=== PATIENT | male | born 1945 | race Caucasian/White ===

== ENCOUNTER 2021-12-26 09:13 | Inpatient (IN) | payer OTHER, MEDICARE ==
[~2021-12-26] VITALS: Ht 172.7 cm; Wt 69.0 kg
[~2021-12-26 09:13] MED LIST: ASPI325 PO; CRESTOR; METO50 PO; NITR.4SL SL; OMEP20ER PO; ROSU5 PO
[2021-12-26 09:33] LABS: Hematocrit 41.4 % (37.0-53.0); Hemoglobin 13.7 g/dL (13.5-17.5); Mean Corpuscular HGB Conc 33.1 g/dL (31.5-36.5); Mean Corpuscular Volume 91 fL (80-100); Mean Platelet Volume 9.5 fL (9.1-12.4); Platelet Count 258 K/mm3 (150-400); RDW Coefficient Variation 12.2 % (11.7-14.2); RDW Standard Deviation 40.6 fL (35.1-46.3); Red Blood Cell Count 4.56 M/mm3 (4.30-5.90); White Blood Cell Count 14.52 K/mm3 (4.00-11.30)
[2021-12-26 09:50] LABS: International Normalized Ratio 1.26
[2021-12-26] MEDS ORDERED: METO25ER PO (09:54)
[2021-12-26] MEDS ORDERED: LIPITOR80 MG PO (09:54)
[2021-12-26] MEDS ORDERED: LEVSOD25 PO (09:55)
[2021-12-26 11:52] LABS: Anion Gap 6 mmol/L (6-16); Blood Urea Nitrogen 21 mg/dL (8-24); Bun/Creatinine Ratio 19.6 (12.0-20.0); CHOL/HDL RATIO 3.6; CO2, Blood 25 mmol/L (21-32); CPK Creatine Kinase 88 U/L (39-308); Calcium, Blood 8.8 mg/dL (8.5-10.1); Chloride, Blood 109 mmol/L (98-108); Cholesterol 182 mg/dL (50-200); Creatinine, Blood 1.07 mg/dL (0.60-1.20); Glomerular Filtration Rate >60 (60-); Glucose, Blood 210 mg/dL (70-99); HDL Cholesterol 50 mg/dL (>39); LDL/HDL RATIO 2.1; Low Density Lipoprotein Chol 103 mg/dL (0-110); Magnesium, Blood 2.1 mg/dL (1.6-2.4); Potassium, Blood 4.3 mmol/L (3.5-5.5); Sodium, Blood 140 mmol/L (136-145); Triglycerides 147 mg/dL (30-160); Very Low Density Lipoprot Chol 29 mg/dL (6-32)
[2021-12-26 13:44] LABS: Creatine Kinase MB 154.9 ng/mL (0.0-3.6); Creatine Kinase MB Index 7.7 (0.0-4.0)
[2021-12-26 14:09] LABS: Alanine Aminotransfer (ALT/SGP 83 U/L (12-78); Albumin, Blood 3.3 g/dL (3.4-5.0); Albumin/Globulin Ratio 1.1 (0.8-1.8); Alk Phos 146 U/L (50-136); Anion Gap 6 mmol/L (6-16); Aspartate Aminotrans (AST/SGOT 324 U/L (12-37); Bilirubin, Total 0.6 mg/dL (0.1-1.0); Blood Urea Nitrogen 19 mg/dL (8-24); Bun/Creatinine Ratio 21.4 (12.0-20.0); CO2, Blood 23 mmol/L (21-32); Calcium, Blood 8.5 mg/dL (8.5-10.1); Chloride, Blood 110 mmol/L (98-108); Creatinine, Blood 0.89 mg/dL (0.60-1.20); Globulin, Blood 3.1 g/dL (2.2-4.0); Glomerular Filtration Rate >60 (60-); Glucose, Blood 161 mg/dL (70-99); Potassium, Blood 4.5 mmol/L (3.5-5.5); Sodium, Blood 139 mmol/L (136-145); Total Protein, Blood 6.4 g/dL (6.4-8.2)
--- NOTE | 2021-12-26 14:12 | NUR ---
AROUND 1335 THIS RN WAS CALLED INTO THE ROOM BY STREET LIGHT LAMP CLEANER AFTER PT STATED HE WAS FEELING DIZZY AND NASEUOUS. PT WAS DIAPHORETIC AND PALE. NOTICED HR WAS DROPPING. PIANO CASE AND BENCH ASSEMBLER CALLED AND CODE CARD BROUGHT INTO ROOM. LOST PULSE AND CPR WAS STARTED. MARY ELLEN FISCHER CALLED. AFTER 2 CHEST COMPRESSIONS, PT AWOKE. HR RETURNED TO LOW 100S AND PT REPORTED NO MORE SYMPTOMS. DR ASH AT BEDSIDE FOR CODE. ANNEALER NOTIFIED. SEE ORDERS.
--- NOTE | 2021-12-26 19:37 | NUR ---
1630 - PT CALLED ME TO THE ROOM. WHEN I ENTERED, PT APPEARED TO BE SEIZING. SENIOR MECHANICAL DESIGNER CALLED TO ROOM. PT HAD FIXED UPWARD LEFT GAZE, APNIC. 2MG ATIVAN WAS GIVEN. ATTEMPTED TO BAG PT BUT UNABLE TO OPEN AIRWAY. BP DECREASED. AND HR HAD DECREASED TO 50S. PT WAS DIAPHORETIC. PT QUICKLY RECOVERED AND WAS ABLE TO RESPOND APPROPRIATELY TO ORIENTATION QUESTIONS, THOUGH SLEEPY. HR AND BP RECOVERED WITHOUT TREATMENT. DR HEARD NOTIFIED VIA PHONE, SEE ORDERS. 1830 - PT BEGAN REMOVING BIPAP. THIS RN ENTERED ROOM. PT WAS HYPOTENSIVE, DIAPHORETIC, VOMITTED, HR DECREASED TO 50S. AGAIN, HE QUICKLY RECOVERED. DR. MYRICK AT BEDSIDE, NOTIFIED OF EPISODE. SEE ORDERS. BLADDER SCANNED AROUND 1900, RESULT OF 120CC IN BLADDER. PT NOTICED TO HAVE INCONTINENT EPISODE AT THIS TIME.
--- NOTE | 2021-12-26 20:00 | NUR ---
ASSUMED CARE OF PT AT 1915. REPORT RECEIVED AT BEDSIDE. PT HAS ZOLL AND PATCHES TO CHEST. PT ON AGGRASTAT DRIP AND WILL BE FOR 18 HOURS. PT CURRENTLY HAS NO COMPLAINTS OF CHEST PAIN OR DYSPNEA. NO CHEST PRESSURE. WILL REVIEW CHART AND PLAN OF CARE FOR THIS PT.
[2021-12-26 21:16] LABS: Creatine Kinase MB 207.3 ng/mL (0.0-3.6); Creatine Kinase MB Index 9.8 (0.0-4.0)
[2021-12-27 03:16] LABS: BASOPHILS ABSOLUTE AUTO 0.03 K/mm3 (0.00-0.23); BASOPHILS PERCENT AUTO 0 % (0-2); EOSINOPHILS PERCENT AUTO 0 % (0-6); Hematocrit 30.2 % (37.0-53.0); Hemoglobin 9.8 g/dL (13.5-17.5); IMMATURE GRAN ABSOLUTE AUTO 0.06 K/mm3 (0.00-0.10); IMMATURE GRAN PERCENT AUTO 0 % (0-1); LYMPHOCYTES ABSOLUTE AUTO 1.13 K/mm3 (0.84-5.20); LYMPHOCYTES PERCENT AUTO 7 % (21-46); MONOCYTES ABSOLUTE AUTO 1.27 K/mm3 (0.16-1.47); MONOCYTES PERCENT AUTO 8 % (4-13); Mean Corpuscular HGB 29.8 pg (26.0-34.0); Mean Corpuscular HGB Conc 32.5 g/dL (31.5-36.5); Mean Corpuscular Volume 92 fL (80-100); Mean Platelet Volume 10.1 fL (9.1-12.4); NEUTROPHILS ABSOLUTE AUTO 14.44 K/mm3 (1.96-9.15); NEUTROPHILS PERCENT AUTO 85 % (41-73); Platelet Count 205 K/mm3 (150-400); RDW Coefficient Variation 12.5 % (11.7-14.2); Red Blood Cell Count 3.29 M/mm3 (4.30-5.90); White Blood Cell Count 16.93 K/mm3 (4.00-11.30)
[2021-12-27 04:21] LABS: Creatine Kinase MB 128.2 ng/mL (0.0-3.6); Creatine Kinase MB Index 8.3 (0.0-4.0)
--- NOTE | 2021-12-27 07:01 | NUR ---
PT HAS HAD SOME RESIDUAL CHEST PAIN ON RIGHT SIDE OF CHEST. PT STATES THAT IT IS WHERE "THEY POPPED ME." ALLUDING TO WHEN COMPRESSIONS HAD BEEN DONE. PT CURRENTLY OF AGGRASTAT DRIP. HAS HAD ONE EPISODE OF SINUS PAUSE THIS MORNING. PT WAS UNAWARE THAT THIS OCCURRED. HAS BEEN UP TO BEDSIDE COMMODE AND HAS HAD LARGE BM. NO VAGAL/BRADYCARDIA DURING THIS. DID DO ORTHOSTATIC BLOOD PRESSURES. SEE VS FLOWSHEET FOR DETAILS. TRANSFER DONE WITH ONE PERSON ASSIST. PT HAS REMAINED ON ROOM AIR THROUGHOUT THE NIGHT. NO COMPLAINTS OF SHORTNESS OF BREATH. WILL CONTINUE TO MONITOR PT, AND WILL REPORT OFF TO ONCOMING RN.
[2021-12-27 09:28] LABS: Hematocrit 29.2 % (37.0-53.0); Hemoglobin 9.6 g/dL (13.5-17.5)
--- NOTE | 2021-12-27 09:52 | NUR ---
Pt. is awake, alert and in bed. Pt. welcomes my visit. Pt. is pleasant and displays evidence of gratitude for the care he has received. Pt. is unsettled by his personal lack of taking intitiative when he experienced early symtoms. Listen empathetically. Provide alming influence. Pt. displays evidence of encouragement. Pt. verbalizes gratitude for the spiritual care visit. Pt. welcomes a return visit.
--- NOTE | 2021-12-27 11:46 | NUR ---
[place] of Care:
--- NOTE | 2021-12-27 18:05 | NUR ---
NO ACUTE EVENTS THIS SHIFT. PT IS A&OX4. CALM AND COOPERATIVE. SPENT MOST OF THE DAY IN THE CHAIR. ROOM AIR. SR 80S-90S AND SINUS TACH TO 120 WITH ACTIVITY. COMPLAINS OF MUSCULOSKELETAL PAIN IN RIGHT CHEST AREA FROM CODE. IMPROVED WITH TYLENOL. VOIDED CLEAR YELLOW URINE IN URINAL.
--- NOTE | 2021-12-27 19:10 | NUR ---
ASSUMPTION OF CARE PT RESTING IN BED WITH EYES CLOSED, WAKENS EASILY TO SOUND. HE IS CURRENTLY RECEIVING NS 100ML/HR AND WILL BE SALINE LOCKED ONCE BAG IS COMPLETE. PT ON RA, DENIES NEEDS AT THIS TIME. URINAL AND CALL LIGHT WITHIN REACH. VSS.
[2021-12-28 03:35] LABS: BASOPHILS ABSOLUTE AUTO 0.03 K/mm3 (0.00-0.23); BASOPHILS PERCENT AUTO 0 % (0-2); EOSINOPHILS PERCENT AUTO 1 % (0-6); Hematocrit 27.9 % (37.0-53.0); Hemoglobin 9.3 g/dL (13.5-17.5); IMMATURE GRAN ABSOLUTE AUTO 0.07 K/mm3 (0.00-0.10); IMMATURE GRAN PERCENT AUTO 1 % (0-1); LYMPHOCYTES ABSOLUTE AUTO 1.03 K/mm3 (0.84-5.20); LYMPHOCYTES PERCENT AUTO 8 % (21-46); MONOCYTES ABSOLUTE AUTO 1.09 K/mm3 (0.16-1.47); MONOCYTES PERCENT AUTO 9 % (4-13); Mean Corpuscular HGB 30.4 pg (26.0-34.0); Mean Corpuscular HGB Conc 33.3 g/dL (31.5-36.5); Mean Corpuscular Volume 91 fL (80-100); Mean Platelet Volume 10.4 fL (9.1-12.4); NEUTROPHILS ABSOLUTE AUTO 10.02 K/mm3 (1.96-9.15); NEUTROPHILS PERCENT AUTO 81 % (41-73); Platelet Count 166 K/mm3 (150-400); RDW Coefficient Variation 12.9 % (11.7-14.2); RDW Standard Deviation 42.3 fL (35.1-46.3); Red Blood Cell Count 3.06 M/mm3 (4.30-5.90); White Blood Cell Count 12.34 K/mm3 (4.00-11.30)
[2021-12-28 03:54] LABS: Alanine Aminotransfer (ALT/SGP 54 U/L (12-78); Albumin, Blood 2.9 g/dL (3.4-5.0); Alk Phos 103 U/L (50-136); Anion Gap 7 mmol/L (6-16); Aspartate Aminotrans (AST/SGOT 127 U/L (12-37); Bilirubin, Total 0.9 mg/dL (0.1-1.0); Blood Urea Nitrogen 18 mg/dL (8-24); Bun/Creatinine Ratio 19.7 (12.0-20.0); CO2, Blood 21 mmol/L (21-32); Calcium, Blood 8.3 mg/dL (8.5-10.1); Chloride, Blood 111 mmol/L (98-108); Creatinine, Blood 0.91 mg/dL (0.60-1.20); Glomerular Filtration Rate >60 (60-); Glucose, Blood 185 mg/dL (70-99); Potassium, Blood 4.1 mmol/L (3.5-5.5); Sodium, Blood 139 mmol/L (136-145); Total Protein, Blood 5.9 g/dL (6.4-8.2)
--- NOTE | 2021-12-28 06:11 | NUR ---
SHIFT SUMMARY PT SLEPT THROUGH MOST OF NIGHT. HE WAKENS EASILY TO SOUND AND VERBAL STIMULI. HE REMAINS ALERT AND ORIENTED. NO ACUTE EVENTS THIS SHIFT. HE CONTINUES TO HAVE MUSCULOSKELETAL CHEST PAIN BUT DENIES SOB OR CP. HE HAS USED THE URINAL INDEPENDENTLY SEVERAL TIMES THROUGHOUT THE NIGHT. SALINE LOCKED SINCE EARLY IN SHIFT. DRINKING PLENTY OF PO FLUIDS. ATE SNACK AROUND 0200. VSS. WILL REPORT TO ONCOMING RN.
--- NOTE | 2021-12-28 12:00 | NUR ---
REASSESMENT PT UP IN CHAIR, REPORTS HE IS COMFORTABLE. DENIES ANY CHEST PAIN. MONITOR SHOWS PT TO BE IN SINUS TACH WITH RATE IN LOW 110'S. EARLIER THIS MORNING AFTER PT WOKE UP, HR INCREASED TO 120'S-130'S. DURING THAT TIME PT DENIED ANY DISCOMFORT/CHEST PAIN AND VITALS WERE STABLE. ASSESSMENT REMAINS UNCHANGED EXCEPT WERE NOTED. CALL LIGHT IN REACH OF PT.
--- NOTE | 2021-12-28 12:28 | NUR ---
DISCUSSED PT'S STATUS WITH DR FLANAGAN. PLAN IS TO CONTINUE TO OBSERVE PT IN ICU AT THIS TIME.
--- NOTE | 2021-12-28 16:30 | NUR ---
REASSESMENT PT SAT UP IN CHAIR MOST OF DAY. BACK IN BED NOW. CONTINUES TO DENY CHESTPAIN. HR HAS IMPROVED TO LOW 100'S THIS AFTERNOON. VITALS REMAIN STABLE. DR FLANAGAN TO BEDSIDE TO EVAL PT. PT DOWNGRADED TO PCU STATUS. NO ACUTE CHANGES TO PREVIOUS ASSESSMENT.
--- NOTE | 2021-12-28 17:24 | NUR ---
SHIFT SUMMARY PT IS ALERT AND ORIENTED x4. THIS MORNING PT HAD INCREASED HR WITH RATES 120'S-130'S. PT'S HR HAS IMPROVED THROUGH OUT THE DAY AND RATES OF HIGH 90'S-100'S NOW. PT HAS BEEN IN MOSTLY SINUS TACH WITH OCCASIONAL SINUS RHYTHM. PT HAS DENIED CHEST PAIN. PT WAS STATUS CHANGED THIS AFTERNOON TO PCU. DR FLANAGAN STATED THAT PT COULD POSSIBLY GO HOME TOMORROW. VITALS HAVE REMAIN STABLE. PT TOLERATED SITTING UP IN CHAIR A GOOD PORTION OF THE DAY.
--- NOTE | 2021-12-28 19:11 | NUR ---
ASSUMPTION OF CARE PT SLEEPING, WAKENS EASILY TO VERBAL STIMULI. HE REMAINS SALINE LOCKED AND ON RA. DENIES CP OR SOB AT THIS TIME. VSS. SEE SHIFT ASSESSMENT.
--- NOTE | 2021-12-28 22:32 | NUR ---
REPORT TO PCU REPORT GIVEN TO GLENROY. PT MOVED TO PCU AT THIS TIME BY DAIANA MURPHY. VSS.
[2021-12-29 04:03] LABS: Free Thyroxine 0.99 ng/dL (0.70-1.60); Thyroid Stimulating Hormone 2.63 uIU/mL (0.360-4.800)
--- NOTE | 2021-12-29 09:58 | NUR ---
CARE ASSUMPTION PATIENT IS ALERT AND OREINTED X4. PERRLA. NEURO IS INTACT. PATIENT REPORTS NO NUMBNESS OR TINGLING IN EXTREMITIES. VSS. TELE SR/ST 80-106. PATIENT REPORTS NO CHEST PAIN OR PRESSURE. STRONG RADIAL AND PEDIS PULSES. NO EDEMA NOTED. LUNG SOUNDS CLEAR. SEE SHIFT ASSESSMENT FOR FULL DETAILS. PATIENT REPORTS NO PAIN OR SHORTNESS OF BREATH. PATIENT USES CALL LIGHT APPROPRIATELY. CALL LIGHT IS WITHIN REACH AND BED IN LOWEST POSITION. WILL CONTINUE TO MONITOR AND PROVIDE CARE.
[2021-12-29] MEDS ORDERED: ASPI81CH PO (11:06)
[2021-12-29] MEDS ORDERED: TICA90TA PO (11:07)
[2021-12-29] MEDS ORDERED: CARV3.125 PO (11:07)
[2021-12-29] MEDS ORDERED: NITR.4SL SL (11:11)
--- NOTE | 2021-12-29 11:50 | NUR ---
DISCHARGE THIS RN WENT OVER ALL NEW MEDICATIONS, WHAT MEDICATIONS TO STOP, AND SITE CARE FOR HIS RADIAL SITE POST ANGIO. PATIENT VERABLIZED UNDERSTANDING AND HAS EDUCATIONAL PRINT OUTS. THIS RN INFORMED PATIENT OF FOLLOW UP APPOINTMENTS WITH PRIMARY CARE PROVIDER AND ANIMAL PATHOLOGY TEACHER TO MAKE Thursday, AND PROVIDED THE PAPERWORK THAT HAS THIS INFORMATION. PATIENT REMAINS UNCHANGE SINCE PREVIOUS NOTE. NEURO IS INTACT. NO ACUTE CHANGES. VSS. WILL CONTINUE TO MONITOR AND PROVIDE CARE UNTIL PATIENT RIDE ARRIVES. PATIENT HAS ALL BELONGINGS GATHERED.
--- NOTE | 2021-12-29 12:15 | NUR ---
DISCHARGED PATIENT LEFT PCU UNIT VIA AMBULATING WITH THIS RN. ALL PATIENT BELONGINGS WITH PATIENT.PATIENT IN NO DISTRESS WHEN LEAVING OR GETTING INTO THE TRUCK FOR HIS RIDE TO ROTARY FILTER OPERATOR HIS NEW PRESCRIPTIONS.
[2022-01-01] MEDS ORDERED: Acetaminophen650 M1 PO (16:03)
[2022-01-01] MEDS ORDERED: FERSU300 PO (16:04)
[2022-01-01] MEDS ORDERED: PANT40 PO (16:04)
== END 2021-12-29 12:03 | disposition home or self-care (01) | DRG 246 ==
LOC: ER 09:13 → ICUW 09:25 → ICUE 09:25 → PCU 12-28 22:49
PROVIDERS: Emergency Medicine; Internal Medicine; ADMIT Internal Medicine Interventional Cardiology
PROC: 027034Z Dilation of Coronary Artery, One Artery with Drug-eluting Intraluminal Device, Percutaneous Approach (ICD-10-PCS; principal; 2021-12-26)
PROC: 02C03ZZ Extirpation of Matter from Coronary Artery, One Artery, Percutaneous Approach (ICD-10-PCS; 2021-12-26)
PROC: 4A023N7 Measurement of Cardiac Sampling and Pressure, Left Heart, Percutaneous Approach (ICD-10-PCS; 2021-12-26)
PROC: 5A12012 Performance of Cardiac Output, Single, Manual (ICD-10-PCS; 2021-12-26)
DX: I21.09 ST elevation (STEMI) myocardial infarction involving other coronary artery of anterior wall (principal); I49.01 Ventricular fibrillation; I46.2 Cardiac arrest due to underlying cardiac condition; R55 Syncope and collapse; E78.5 Hyperlipidemia, unspecified; I10 Essential (primary) hypertension; E03.9 Hypothyroidism, unspecified; E78.00 Pure hypercholesterolemia, unspecified; I95.9 Hypotension, unspecified; I25.10 Atherosclerotic heart disease of native coronary artery without angina pectoris; Z88.8 Allergy status to other drugs, medicaments and biological substances
CPT/HCPCS: 36415; 71045; 76937; 80048; 80053; 80061; 82550; 82553; 82565; 82947; 83735; 83880; 84146; 84439; 84443; 84484; 85014; 85018; 85025; 85027; 85347; 85610; 85730; 86850; 86900; 86901; 92978; 93005; 93010; 93306; 93458; 99152; 99153; 99285-25; A9270; C1725; C1753; C1757; C1769; C1874; C1887; C1894; C9606; J0153; J1644; J2060; J2250; J2370; J3010; J3246; J3475; J7030; J7050; Q9967

== ENCOUNTER 2022-05-04 15:03 | Observation (INO) | payer OTHER ==
[~2022-05-04] VITALS: Ht 172.7 cm; Wt 66.7 kg
[~2022-05-04 15:03] MED LIST changes: +ASPI81CH PO; +Acetaminophen650 M1 PO; +CARV3.125 PO; +FERSU300 PO; +LEVSOD25 PO; +LIPITOR80 MG PO; +METO25ER PO; +PANT40 PO; +TICA90TA PO
[2022-05-04 15:23] LABS: BASOPHILS ABSOLUTE AUTO 0.11 K/mm3 (0.00-0.23); BASOPHILS PERCENT AUTO 1 % (0-2); EOSINOPHILS ABSOLUTE AUTO 0.26 K/mm3 (0.00-0.68); EOSINOPHILS PERCENT AUTO 2 % (0-6); Hematocrit 27.8 % (37.0-53.0); Hemoglobin 9.1 g/dL (13.5-17.5); IMMATURE GRAN ABSOLUTE AUTO 0.12 K/mm3 (0.00-0.10); IMMATURE GRAN PERCENT AUTO 1 % (0-1); LYMPHOCYTES ABSOLUTE AUTO 1.65 K/mm3 (0.84-5.20); LYMPHOCYTES PERCENT AUTO 11 % (21-46); MONOCYTES ABSOLUTE AUTO 1.17 K/mm3 (0.16-1.47); MONOCYTES PERCENT AUTO 8 % (4-13); Mean Corpuscular HGB 29.7 pg (26.0-34.0); Mean Corpuscular HGB Conc 32.7 g/dL (31.5-36.5); Mean Corpuscular Volume 91 fL (80-100); NEUTROPHILS ABSOLUTE AUTO 11.18 K/mm3 (1.96-9.15); NEUTROPHILS PERCENT AUTO 77 % (41-73); Platelet Count 353 K/mm3 (150-400); RDW Coefficient Variation 14.3 % (11.7-14.2); RDW Standard Deviation 47.7 fL (35.1-46.3); Red Blood Cell Count 3.06 M/mm3 (4.30-5.90); White Blood Cell Count 14.49 K/mm3 (4.00-11.30)
[2022-05-04 15:45] LABS: Albumin, Blood 2.8 g/dL (3.4-5.0); Albumin/Globulin Ratio 0.8 (0.8-1.8); Bilirubin, Total 0.8 mg/dL (0.1-1.0); Bun/Creatinine Ratio 22.8 (12.0-20.0); Calcium, Blood 8.2 mg/dL (8.5-10.1); Creatinine, Blood 1.01 mg/dL (0.60-1.20); Globulin, Blood 3.6 g/dL (2.2-4.0); Potassium, Blood 4.5 mmol/L (3.5-5.5); Total Protein, Blood 6.4 g/dL (6.4-8.2)
[2022-05-04] MEDS ORDERED: COLACE100 MG PO (18:00)
[2022-05-04] MEDS ORDERED: Amiodarone HCl200 MG PO (18:00)
[2022-05-04] MEDS ORDERED: Midodrine HCl2.5 MG PO (18:01)
[2022-05-04] MEDS ORDERED: TAMSULOSIN HCL0.4 M1 PO (18:01)
[2022-05-04] MEDS ORDERED: METOPROLOL TART25 MG PO (18:01)
[2022-05-04 18:02] LABS: Source, Urine Foley catheter
[2022-05-04] MEDS ORDERED: OXYC5 PO (18:02)
[2022-05-04 18:04] LABS: Appearance, Urine Clear (Clear); Bilirubin, Urine Neg (Neg); Blood, Urine 3+ (Neg); Color, Urine Yellow (P-Yellow); Glucose Qualitative, Urine Neg (Neg); Ketones, Urine Neg (Neg); Leukocyte Esterase, Urine Neg (Neg); Nitrite, Urine Neg (Neg); Protein, Urine Neg (Neg); Urobilinogen, Urine NORM (Normal)
[2022-05-04 18:12] LABS: Bacteria Few /hpf; Squamous Epithelial Cells Rare /hpf (Few); White Blood Cells, Urine 0-2 /hpf (0-5)
[2022-05-05 02:09] LABS: BASOPHILS ABSOLUTE AUTO 0.07 K/mm3 (0.00-0.23); BASOPHILS PERCENT AUTO 1 % (0-2); EOSINOPHILS ABSOLUTE AUTO 0.26 K/mm3 (0.00-0.68); EOSINOPHILS PERCENT AUTO 3 % (0-6); Hematocrit 27.1 % (37.0-53.0); Hemoglobin 8.9 g/dL (13.5-17.5); IMMATURE GRAN ABSOLUTE AUTO 0.14 K/mm3 (0.00-0.10); IMMATURE GRAN PERCENT AUTO 1 % (0-1); LYMPHOCYTES ABSOLUTE AUTO 1.97 K/mm3 (0.84-5.20); LYMPHOCYTES PERCENT AUTO 19 % (21-46); MONOCYTES ABSOLUTE AUTO 0.92 K/mm3 (0.16-1.47); MONOCYTES PERCENT AUTO 9 % (4-13); Mean Corpuscular HGB 29.8 pg (26.0-34.0); Mean Corpuscular HGB Conc 32.8 g/dL (31.5-36.5); Mean Corpuscular Volume 91 fL (80-100); Mean Platelet Volume 8.7 fL (9.1-12.4); NEUTROPHILS ABSOLUTE AUTO 6.82 K/mm3 (1.96-9.15); NEUTROPHILS PERCENT AUTO 67 % (41-73); Platelet Count 333 K/mm3 (150-400); RDW Coefficient Variation 14.1 % (11.7-14.2); RDW Standard Deviation 46.1 fL (35.1-46.3); Red Blood Cell Count 2.99 M/mm3 (4.30-5.90); White Blood Cell Count 10.18 K/mm3 (4.00-11.30)
[2022-05-05 02:19] LABS: Albumin, Blood 2.8 g/dL (3.4-5.0); Albumin/Globulin Ratio 0.8 (0.8-1.8); Bilirubin, Total 0.9 mg/dL (0.1-1.0); Bun/Creatinine Ratio 21.5 (12.0-20.0); Calcium, Blood 8.5 mg/dL (8.5-10.1); Creatinine, Blood 0.93 mg/dL (0.60-1.20); Globulin, Blood 3.4 g/dL (2.2-4.0); Potassium, Blood 4.2 mmol/L (3.5-5.5); Total Protein, Blood 6.2 g/dL (6.4-8.2)
--- NOTE | 2022-05-05 05:27 | NUR ---
SHIFT SUMMARY: PT IS ALERT AND ORIENTED. PT IS CALM AND COOPERATIVE WITH CARE. PT CALLS APPROPRIATELY. PT IS A STANDBY ASSIST, NOT OUT OF BED OVERNIGHT. PT HAS OWENS, PATENT AND DRAINING, BEEN IN PLACE SINCE CARDIAC SURGERY, WILL HAVE DAY NURSE FOLLOW UP WITH DOCTOR ABOUT BEING REMOVED. PT DENIES PAIN, NAUSEA, VOMITING, AND SOB. PT SLEPT MUCH OF THE NIGHT WHEN NOT DISTURBED. BED IN LOW POSITION, CALL LIGHT WITHIN REACH. WILL CONTINUE TO MONITOR.
--- NOTE | 2022-05-05 11:54 | NUR ---
ORTHOSTATIC BP'S AND OWENS OUT: ORTHOSTATIC BP'S WERE FOLLOWS: LYIN/71 WITH HR OF 105 SITTING 127/90 WITH HR OF 110 STANDING 149/84 WITH HR OF 113 PATIENT'S OWENS DISCONTINUED. URINAL AT BEDSIDE. PATIENT REQUESTS BEING ABLE TO REST FOR A WHILE LONGER AND UNDERSTANDS THAT HE SHOULD CALL WHEN HE IS GETTING UP.
--- NOTE | 2022-05-05 18:35 | NUR ---
END OF SHIFT SUMMARY: PATIENT DENIED PAIN OR DISCOMFORT THROUGHOUT THE SHIFT. PATIENT ABLE TO STAND, SIT IN THE CHAIR AND AMBULATE IN THE ROOM WITHOUT DIZZINESS OR FEELING FAINT. PATIENT WORKED TO INCREASE HIS PO INTAKE. OWENS CATHETER REMOVED IN THE MORNING. PATIENT ABLE TO EASILY VOID THROUGHOUT THE DAY. FIRMWARE SOFTWARE VERIFICATION ENGINEER UNABLE TO READ THE PATIENT'S LOOP MONITOR THIS EVENING. PATIENT NSR OR SINUS TACH THROUGHOUT THE SHIFT. HR IN THE 90'S TO LOW 110S.
[2022-05-05 23:01] LABS: Source, Urine Voided
[2022-05-05 23:23] LABS: Bilirubin, Urine Neg (Neg); Blood, Urine 4+ (Neg); Glucose Qualitative, Urine Neg (Neg); Ketones, Urine Neg (Neg); Leukocyte Esterase, Urine Neg (Neg); Nitrite, Urine Neg (Neg); Protein, Urine Neg (Neg); Specific Gravity, Urine 1.005 (1.003-1.022); Urobilinogen, Urine NORM (Normal); pH, Urine 6.5 (5.0-8.0)
[2022-05-05 23:29] LABS: Appearance, Urine Clear (Clear); Color, Urine Pale Yellow (P-Yellow)
[2022-05-05 23:31] LABS: Bacteria Few /hpf; Squamous Epithelial Cells Rare /hpf (Few); White Blood Cells, Urine 0-2 /hpf (0-5)
--- NOTE | 2022-05-06 05:24 | NUR ---
HELICOPTER TECHNICIAN SUMMARY ADMITTED FOR [facility]. HE IS A FULL CODE. 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 NO COMPLAINTS OF CHEST PAIN OR DIZZINESS THIS SHIFT. HE HAS BEEN SLEEPING COMFORTABLY AND USING THE URINAL INDEPENDENTLY. NO EVENTS ON TELE.
--- NOTE | 2022-05-06 17:27 | NUR ---
SHIFT SUMMARY PT A&O X 4. VSS. LOOP RECORDER ANALYSIS DONE TODAY. (SEE MD PROGRESS REPORT) PT MAY NEED A PACEMAKER THOUGH NO ORDERS HAVE YET BEEN RECEIVED. PT HAS BEEN STDBY ASSIST FOR RESTROOM USE. CHEST INCISION DRESSING C/D/I. PT DENIES SOB, PAIN OR DISCOMFORT.
--- NOTE | 2022-05-07 05:44 | NUR ---
SHIFT SUMMARY Assumed care of pt at 1900, A/Ox4, reports no pain, CP/pressure or dizziness. Maintaining over 95% on RA. Sinus tach on tele low 100's. quality technician fiberglass reports no pauses today. VSS. Using urinal, producing yellow/clear urine. Surgical site over sternum from recent heart surgery. Patient slept for most of the night, no acute changes. Will report to dayshift RN.
--- NOTE | 2022-05-07 12:20 | NUR ---
DISCHARGE NOTE PT ALERT AND ORIENTATED X4. NO C/O PAIN, SOB OR DIZZYNESS THIS MORNING. STEADY GAIT UP TO THE BATHROOM. PT VERBALISED UNDERSTANDING OF DISCHARGE INSTRUCTIONS - WRITTEN AND VERBAL. PIV REMOVED INTACT. W/C RIDE TO MEET HIS FRIEND FOR DISCHARGE AT 1215.
== END 2022-05-07 12:13 | disposition home or self-care (01) ==
LOC: ER 15:03 → MEDS 15:04
PROVIDERS: Emergency Medicine; Internal Medicine; Student in an Organized Health Care Education/Training Program; ADMIT Internal Medicine
DX: R55 Syncope and collapse (principal); R79.89 Other specified abnormal findings of blood chemistry; I25.10 Atherosclerotic heart disease of native coronary artery without angina pectoris; I48.91 Unspecified atrial fibrillation; D72.829 Elevated white blood cell count, unspecified; I10 Essential (primary) hypertension; D64.9 Anemia, unspecified; E03.9 Hypothyroidism, unspecified; Z95.1 Presence of aortocoronary bypass graft; I25.2 Old myocardial infarction; Z87.891 Personal history of nicotine dependence; Z88.8 Allergy status to other drugs, medicaments and biological substances
CPT/HCPCS: 36415; 71045; 80053; 81001; 83880; 84484; 85025; 93005; 93010; 93291; 93308; 93321; 96360; 96361; 96372; 99285-25; A9270; G0378; J1650; J7030